=== PATIENT | female | born 2005 | race Two or more races ===

== ENCOUNTER 2024-11-05 02:59 | Emergency (ER) | payer MEDICAID, SELFPAY ==
[2024-11-05 03:14] VITALS: BP 128/75; PULSE 109; RESP 20; TEMP 36.7; O2SAT 96
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
[2024-11-05] MEDS: DIPHTH,PERTUSS(ACELL),TET VAC 0.5 ML VIAL IMi (03:22)
--- NOTE | 2024-11-05 03:49 | PC.NURSE ---
aT THIS TIME, PT AMBULATED OUT OF DEPARTMENT INDEPENDENTLY WITH STEADY GAIT. PT WAS ACCOMPANIED BY 2 FAMILY MEMBERS. PT GSC [id number] AT THIS TIME,
== END 2024-11-05 03:49 | disposition left against medical advice (07) ==
PROVIDERS: Emergency Provider Emergency Medicine
DX: S00.81XA Abrasion of other part of head, initial encounter (principal); W19.XXXA Unspecified fall, initial encounter; Z23 Encounter for immunization; Z53.29 Procedure and treatment not carried out because of patient's decision for other reasons
CPT/HCPCS: 90471; 90715; 99281